=== PATIENT | female | born 1945 | race Caucasian/White ===

== ENCOUNTER 2018-11-06 08:06 | Emergency (ER) | payer MEDICARE ==
[2018-11-06] MEDS ORDERED: HYDROmorphone 2 MG/ML SDV IM ONE (08:30)
--- NOTE | 2018-11-06 08:31 | EDM.PDOC ---
ED HPI GENERAL MEDICAL PROBLEM - General Chief Complaint: Back Pain or Injury Time Seen by Provider: 11/06/18 08:31 Source of Information: Reports: Patient History Limitations: Reports: No Limitations - History of Present Illness INITIAL COMMENTS - FREE TEXT/NARRATIVE: Fall on buttock last night at around 6 pm.Complains of lumbar back pain. Worse with any movement. No radiation. has a previous h/o lumbar fusion L4/5 LOWER BACK Pain Score (Numeric/FACES): 10 - Related Data Allergies Allergy/AdvReac Type Severity Reaction Status Date / Time No Known Allergies Allergy Verified 11/06/18 08:18 Home Meds: Home Meds Albuterol [Ventolin HFA] 1 puff .XX BID 11/06/18 [History] Formoterol/Mometasone [Dulera 100-50 MCG] 2 puff IH BID 11/06/18 [History] Social & Family History - Tobacco Use Smoking Status *Q: Current Every Day Smoker Years of Tobacco use: 55 Packs/Tins Daily: 1 - Caffeine Use Caffeine Use: Reports: Coffee - Recreational Drug Use Recreational Drug Use: No ED ROS GENERAL - Review of Systems Review Of Systems: ROS reveals no pertinent complaints other than HPI. ED EXAM,LOWER BACK PAIN/INJURY - Physical Exam Exam: See Below Exam Limited By: No Limitations General Appearance: Alert, WD/WN, No Apparent Distress Head: Atraumatic Back Exam: Normal Inspection, Muscle Spasm, Paraspinal Tenderness, Vertebral Tenderness. No: Full Range of Motion Extremities: Normal Inspection, No Pedal Edema Neurological: Alert, Normal Mood/Affect, CN II-XII Intact, Oriented x 3 Psychiatric: Normal Affect Course - Vital Signs Last Recorded V/S: Last Vital Signs Temp 98.3 F 11/06/18 08:10 Pulse 109 H 11/06/18 08:10 Resp 19 11/06/18 08:10 BP 135/78 11/06/18 08:10 Pulse Ox 96 11/06/18 08:10 - Orders/Labs/Meds Orders: Active Orders 24 hr Category Date Time Status Lumbar Spine wo Cont [CT] Stat Exams 11/06/18 08:30 Ordered Meds: Medications Discontinued Medications Generic Name Dose Route Start Last Admin Trade Name Freq PRN Reason Stop Dose Admin Hydromorphone HCl 2 mg 11/06/18 08:30 11/06/18 08:53 Dilaudid IM 11/06/18 08:31 2 mg ONETIME ONE Administration Departure - Departure Time of Disposition: 09:52 Disposition: Home, Self-Care 01 Clinical Impression: Lumbar vertebral fracture - Discharge Information Instructions: Chronic Back Pain, [id number] Referrals: PCP,None [Primary Care Provider] - Forms: ED Department Discharge - Problem List & Annotations (1) Lumbago SNOMED Code(s): 871182882 Code(s): M54.5 - LOW BACK PAIN Status: Acute Current Visit: Yes Qualifiers: Chronicity: acute Sciatica presence: without sciatica (2) Thoracic compression fracture SNOMED Code(s): 850963088 Code(s): S22.000A - WEDGE COMPRESSION FRACTURE OF UNSP THORACIC VERTEBRA, INIT Status: Acute Current Visit: Yes Qualifiers: Thoracic vertebra fracture level: T12 Fracture healing: with routine healing (3) Lumbar vertebral fracture SNOMED Code(s): 958442576 Code(s): S32.009A - UNSP FRACTURE OF UNSP LUMBAR VERTEBRA, INIT FOR CLOS FX Status: Acute Current Visit: Yes Qualifiers: Encounter type: initial encounter Lumbar vertebra fracture level: L1 - Problem List Review Problem List Initiated/Reviewed/Updated: Yes - My Orders Last 24 Hours: My Active Orders 11/06/18 08:30 Lumbar Spine wo Cont [CT] Stat - Assessment/Plan Last 24 Hours: My Active Orders 11/06/18 08:30 Lumbar Spine wo Cont [CT] Stat Plan: CT showed mild compression deformities of T12 and L2. Also age indeterminate fracture of L1 vertebral body. I have given her Dilaudid 2 mg Im. Symptoms improved. Send home Lilibeth and Rital. Recommend PCP establishment tomorrow and followup.
== END 2018-11-06 10:00 | disposition home or self-care (01) ==
LOC: FB.ED 08:06
DX: S22.089A Unspecified fracture of T11-T12 vertebra, initial encounter for closed fracture (principal); S32.019A Unspecified fracture of first lumbar vertebra, initial encounter for closed fracture; F17.210 Nicotine dependence, cigarettes, uncomplicated; Z79.51 Long term (current) use of inhaled steroids; W19.XXXA Unspecified fall, initial encounter
CPT/HCPCS: 72131; 96372; 99283; J1170

== ENCOUNTER 2022-02-04 11:47 | Inpatient (IN) | payer MEDICARE ==
[2022-02-04] MEDS ORDERED: Albuterol/Ipratropium 3.0-0.5 MG/3 ML Neb Soln NEB ONE (12:03)
[2022-02-04] MEDS ORDERED: methylPREDNISolone Sodium Succinate 125 MG/2 ML SDV IM ONE (12:04)
[2022-02-04 12:59] LABS: ESTIMATED GFR 76 mL/min (>60)
[2022-02-04 13:05] LABS: BASE EXCESS VENOUS,POC 4 mmol/L (-2 - 3+); PCO2 VENOUS,POC 69 mmHg (41-51)
[2022-02-04] MEDS ORDERED: Metolazone 5 MG Tab PO ONE (13:19)
[2022-02-04] MEDS ORDERED: Furosemide 20 MG/2 ML VIAL IVPUSH STA (13:19)
[2022-02-04] MEDS ORDERED: Ondansetron 4 MG/2 ML SDV IV PRN (19:01)
[2022-02-04] MEDS: Sodium Chloride 0.9% 10 ML Syringe FLUSH PRN ×2 (20:57→20:59)
[2022-02-04] MEDS: Enoxaparin 40 MG/0.4 ML Syringe SUBCUT SCH (20:58)
[2022-02-04] MEDS ORDERED: Furosemide 40 MG/4 ML VIAL IVPUSH SCH (21:00)
[2022-02-04] MEDS: Albuterol/Ipratropium 3.0-0.5 MG/3 ML Neb Soln NEB PRN (23:00)
[2022-02-05] MEDS: Albuterol/Ipratropium 3.0-0.5 MG/3 ML Neb Soln NEB PRN (05:33)
[2022-02-05 06:56] LABS: ESTIMATED GFR 58 mL/min (>60)
[2022-02-05] MEDS ORDERED: Furosemide 40 MG/4 ML VIAL IVPUSH SCH (08:00)
[2022-02-05] MEDS ORDERED: Acetaminophen/HYDROcodone 325-5 MG Tab PO PRN (09:09)
[2022-02-05] MEDS: Levofloxacin/Dextrose 5%-Water 750 MG in Premix Bag 1 BAG IV SCH (10:57)
[2022-02-05] MEDS: Formoterol/Mometasone 200-5 MCG 8.8 GM Inhaler IH SCH ×2 (11:00→20:18)
[2022-02-05] MEDS: methylPREDNISolone Sodium Succinate 125 MG/2 ML SDV IVPUSH SCH ×2 (11:52→20:15)
[2022-02-05] MEDS ORDERED: Iopamidol 755 Mg/ML 75 ML Bottle IV ONE (11:55)
[2022-02-05 15:46] LABS: ESTIMATED GFR 52 mL/min (>60)
[2022-02-05] MEDS: Nystatin Topical Powder 15 GM Bottle TOP SCH ×2 (16:26→20:20)
[2022-02-05] MEDS: Enoxaparin 40 MG/0.4 ML Syringe SUBCUT SCH (20:15)
[2022-02-05] MEDS ORDERED: Cyclobenzaprine 10 MG Tab PO SCH (21:00)
[2022-02-06] MEDS: Albuterol/Ipratropium 3.0-0.5 MG/3 ML Neb Soln NEB PRN (04:50)
[2022-02-06] MEDS: methylPREDNISolone Sodium Succinate 125 MG/2 ML SDV IVPUSH SCH (04:50)
[2022-02-06 06:52] LABS: ESTIMATED GFR 66 mL/min (>60)
[2022-02-06] MEDS: Formoterol/Mometasone 200-5 MCG 8.8 GM Inhaler IH SCH ×2 (08:50→20:45)
[2022-02-06] MEDS: Furosemide 20 MG/2 ML VIAL IVPUSH SCH (08:51)
[2022-02-06] MEDS: Sodium Chloride 0.9% 10 ML Syringe FLUSH PRN (08:53)
[2022-02-06] MEDS: Nystatin Topical Powder 15 GM Bottle TOP SCH ×3 (09:00→20:59)
[2022-02-06] MEDS ORDERED: methylPREDNISolone Sodium Succinate 125 MG/2 ML SDV IVPUSH SCH (09:00)
[2022-02-06] MEDS: Levofloxacin/Dextrose 5%-Water 750 MG in Premix Bag 1 BAG IV SCH (10:50)
[2022-02-06] MEDS ORDERED: Acetaminophen 500 MG Tab PO PRN (11:56)
[2022-02-06] MEDS: Enoxaparin 40 MG/0.4 ML Syringe SUBCUT SCH (20:45)
[2022-02-07 06:48] LABS: ESTIMATED GFR 76 mL/min (>60)
[2022-02-07] MEDS: Formoterol/Mometasone 200-5 MCG 8.8 GM Inhaler IH SCH ×2 (09:07→20:03)
[2022-02-07] MEDS: Furosemide 20 MG/2 ML VIAL IVPUSH SCH (09:08)
[2022-02-07] MEDS: Nystatin Topical Powder 15 GM Bottle TOP SCH ×3 (09:08→20:04)
[2022-02-07] MEDS: methylPREDNISolone Sodium Succinate 125 MG/2 ML SDV IVPUSH SCH (09:09)
[2022-02-07] MEDS: Levofloxacin/Dextrose 5%-Water 750 MG in Premix Bag 1 BAG IV SCH (09:10)
[2022-02-07] MEDS: Sodium Chloride 0.9% 10 ML Syringe FLUSH PRN ×3 (09:11→10:49)
[2022-02-07] MEDS: Albuterol/Ipratropium 3.0-0.5 MG/3 ML Neb Soln NEB SCH ×3 (10:50→20:11)
[2022-02-07] MEDS: Enoxaparin 40 MG/0.4 ML Syringe SUBCUT SCH (20:04)
[2022-02-08] MEDS: Albuterol/Ipratropium 3.0-0.5 MG/3 ML Neb Soln NEB SCH ×4 (06:17→20:27)
[2022-02-08 06:39] LABS: ESTIMATED GFR 89 mL/min (>60)
[2022-02-08] MEDS: Formoterol/Mometasone 200-5 MCG 8.8 GM Inhaler IH SCH ×2 (09:09→20:21)
[2022-02-08] MEDS: Nystatin Topical Powder 15 GM Bottle TOP SCH ×3 (09:09→20:21)
[2022-02-08] MEDS: Levofloxacin/Dextrose 5%-Water 750 MG in Premix Bag 1 BAG IV SCH (09:09)
[2022-02-08] MEDS: methylPREDNISolone Sodium Succinate 125 MG/2 ML SDV IVPUSH SCH (09:23)
[2022-02-08] MEDS: Furosemide 20 MG/2 ML VIAL IVPUSH SCH (09:23)
[2022-02-08] MEDS: Sodium Chloride 0.9% 10 ML Syringe FLUSH PRN ×2 (09:25→09:27)
[2022-02-08] MEDS ORDERED: acetaZOLAMIDE 250 MG Tab PO ONE (09:42)
[2022-02-08] MEDS: Enoxaparin 40 MG/0.4 ML Syringe SUBCUT SCH (20:21)
[2022-02-09] MEDS: Albuterol/Ipratropium 3.0-0.5 MG/3 ML Neb Soln NEB SCH ×4 (06:02→20:37)
[2022-02-09 06:42] LABS: PO2 ARTERIAL,POC 77 mmHg (83-108)
[2022-02-09 06:47] LABS: ESTIMATED GFR 89 mL/min (>60)
[2022-02-09] MEDS: Formoterol/Mometasone 200-5 MCG 8.8 GM Inhaler IH SCH ×2 (09:01→20:36)
[2022-02-09] MEDS: Nystatin Topical Powder 15 GM Bottle TOP SCH ×3 (09:01→20:44)
[2022-02-09] MEDS: Levofloxacin/Dextrose 5%-Water 750 MG in Premix Bag 1 BAG IV SCH (09:02)
[2022-02-09] MEDS: methylPREDNISolone Sodium Succinate 125 MG/2 ML SDV IVPUSH SCH (09:09)
[2022-02-09] MEDS: Potassium Chloride 20 MEQ Tab.ER PO SCH (09:14)
[2022-02-09] MEDS: Furosemide 20 MG Tab PO SCH (09:14)
[2022-02-09] MEDS ORDERED: Acetaminophen 500 MG Tab PO ONE (12:44)
[2022-02-09] MEDS: Enoxaparin 40 MG/0.4 ML Syringe SUBCUT SCH (20:34)
[2022-02-09] MEDS: Acetaminophen 500 MG Tab PO SCH (20:39)
[2022-02-09] MEDS: Naproxen 250 MG Tab PO SCH (20:42)
[2022-02-10] MEDS: Albuterol/Ipratropium 3.0-0.5 MG/3 ML Neb Soln NEB SCH (06:10)
[2022-02-10 06:41] LABS: ESTIMATED GFR 66 mL/min (>60)
[2022-02-10] MEDS ORDERED: predniSONE 20 MG Tab PO SCH (08:00)
[2022-02-10] MEDS: Formoterol/Mometasone 200-5 MCG 8.8 GM Inhaler IH SCH (08:38)
[2022-02-10] MEDS: Potassium Chloride 20 MEQ Tab.ER PO SCH (08:39)
[2022-02-10] MEDS: Furosemide 20 MG Tab PO SCH (08:39)
[2022-02-10] MEDS: Naproxen 250 MG Tab PO SCH (08:40)
[2022-02-10] MEDS: Nystatin Topical Powder 15 GM Bottle TOP SCH (08:41)
[2022-02-10] MEDS: Acetaminophen 500 MG Tab PO SCH (08:42)
== END 2022-02-10 11:40 | disposition home health service (06) | DRG 191 ==
LOC: FB.ED 11:47 → FB.MS 19:01 → OBSVTOIN 02-05 09:47 → FB.MS 02-09 21:04
PROVIDERS: ADMIT Emergency Medicine; ATTEND Family Medicine
DX: J44.1 Chronic obstructive pulmonary disease with (acute) exacerbation (principal); E87.20 Acidosis, unspecified; J96.11 Chronic respiratory failure with hypoxia; I51.7 Cardiomegaly; J96.12 Chronic respiratory failure with hypercapnia; J90 Pleural effusion, not elsewhere classified; I50.9 Heart failure, unspecified; F32.A Depression, unspecified; Z20.822 Contact with and (suspected) exposure to COVID-19; F17.200 Nicotine dependence, unspecified, uncomplicated; U07.0 Vaping-related disorder; E66.01 Morbid (severe) obesity due to excess calories; M54.9 Dorsalgia, unspecified; Z79.51 Long term (current) use of inhaled steroids; Z79.899 Other long term (current) drug therapy; Z87.01 Personal history of pneumonia (recurrent); Z90.49 Acquired absence of other specified parts of digestive tract; Z68.39 Body mass index [BMI] 39.0-39.9, adult
CPT/HCPCS: 36415 ×2; 71045; 80048; 80053; 81001; 83880; 84484; 85025 ×2; 85610; 85730; 93005; 94150; 94640 ×2; 96372; 96374; 99285; A9270; J1650; J1940 ×3; J2930; J3490 ×2; U0002; 71260; 82550; 82803; 83735; 93306; 94669; 96376; 97161-GP; 97165-GO; G0378; J1956; J7512; J7620

== ENCOUNTER 2024-11-13 20:55 | Emergency (ER) | payer MEDICARE, MEDICAID | END 2024-11-13 23:35 | disposition home or self-care (01) | LOC: FB.ED 20:55 | DX: T14.8XXA Other injury of unspecified body region, initial encounter (principal); W01.0XXA Fall on same level from slipping, tripping and stumbling without subsequent striking against object, initial encounter; Y93.89 Activity, other specified; Z79.899 Other long term (current) drug therapy | CPT/HCPCS: 93010; 99282; 99283 ==